=== PATIENT | female | born 1990 | race Caucasian/White ===

== ENCOUNTER 2022-11-12 14:00 | Outpatient (CLI) | payer OTHER, SELFPAY | END 2022-11-12 14:01 | disposition home or self-care (01) | LOC: NFLDREF 14:01 | PROVIDERS: Visit Provider Advanced Practice Midwife | DX: Z01.419 Encounter for gynecological examination (general) (routine) without abnormal findings (principal); Z13.6 Encounter for screening for cardiovascular disorders | CPT/HCPCS: 80061 ==

== ENCOUNTER 2023-04-04 15:46 | Outpatient (CLI) | payer OTHER, SELFPAY | END 2023-04-04 15:47 | disposition home or self-care (01) | LOC: NFLDREF 15:49 | PROVIDERS: Visit Provider Physician Assistant | DX: N92.3 Ovulation bleeding (principal) | CPT/HCPCS: 84443 ==

== ENCOUNTER 2023-04-15 15:44 | Outpatient (CLI) | payer OTHER, SELFPAY ==
--- NOTE | 2023-04-15 16:00 | US_ITS ---
Final Report Patient: JODI CORONADO Facility:?[facility] Patient ID:?[id number] Site Patient ID:?[id number]. Site :?[id number] Study:?US Pelvis TA/TV-04/15/2023 6:10:21 PM Ordering Physician:JENNIFER Final Report: INDICATION: Abnormal uterine bleeding COMPARISON: 12/12/2020 TECHNIQUE: 2D lewis scale and color Doppler images were acquired of the pelvis using a transabdominal and transvaginal approach. FINDINGS: Sonographic images demonstrate a normal size and smooth outer contour of the uterus. Uterus measures 9.1 cm in length by 4.4 cm in AP diameter by 4.8 cm in transverse dimension. The myometrium has a normal uniform echotexture. The endometrial lining appears normal and measures 6 mm in composite thickness. The right ovary measures 3.3 x 1.9 x 2.6 cm in size and the left ovary measures 2.5 x 2.4 x 1.7 cm. The ovaries demonstrate normal arterial and venous blood flow on color Doppler analysis. There are no suspicious fluid collections within the cul-de-sac. IMPRESSION: Normal pelvic ultrasound. Dictated by Shane Garrett MD @ 04/16/2023 12:09:37 PM (Electronic Signature)
== END 2023-04-15 15:45 | disposition home or self-care (01) ==
LOC: US 15:45
PROVIDERS: Visit Provider Physician Assistant
DX: N92.3 Ovulation bleeding (principal)
CPT/HCPCS: 76830; 76856

== ENCOUNTER 2023-12-12 10:59 | Outpatient (CLI) | payer OTHER, SELFPAY ==
--- NOTE | 2023-12-12 11:15 | CRLHL7_ITS ---
For Patients: As a result of the Century Cures Act, medical imaging exams and procedure reports are released immediately into your electronic medical record. You may view this report before your referring provider. If you have questions, please contact your health care provider. INDICATION: Ovulation bleeding/AUB COMPARISON: none TECHNIQUE: 2D lewis scale and color Doppler images were acquired of the pelvis using a transabdominal and transvaginal approach. FINDINGS: Sonographic images demonstrate a normal size and smooth outer contour of the uterus. Uterus measures 8.7 cm in length by 4.3 cm in AP diameter by 4.7 cm in transverse dimension. The myometrium has a normal uniform echotexture. The endometrial lining appears normal and measures 5.2 mm in composite thickness. The right ovary measures 3.4 x 1.6 x 1.8 cm in size and the left ovary measures 2.9 x 1.3 x 2.1 cm. The ovaries demonstrate normal arterial and venous blood flow on color Doppler analysis. There are no suspicious fluid collections within the cul-de-sac. IMPRESSION: Normal pelvic ultrasound. Dictated by Shane Garrett MD @ 12/12/2023 12:32:07 PM (Electronically Signed)
== END 2023-12-12 11:00 | disposition home or self-care (01) ==
PROVIDERS: Visit Provider Registered Nurse
DX: N92.3 Ovulation bleeding (principal)
CPT/HCPCS: 76830; 76856

== ENCOUNTER 2024-12-17 10:29 | Outpatient (CLI) | payer OTHER, SELFPAY ==
[2024-12-18 22:28] LABS: HPV Source Cervix
[2024-12-22 11:57] LABS: Pap Test Screened Manually Done
== END 2024-12-17 10:30 | disposition home or self-care (01) ==
PROVIDERS: Visit Provider Registered Nurse
DX: Z12.4 Encounter for screening for malignant neoplasm of cervix (principal); Z13.29 Encounter for screening for other suspected endocrine disorder
CPT/HCPCS: 84443; 87624; 87625; 88141; 88142; 88175